=== PATIENT | female | born 1955 | race Two or more races ===

== ENCOUNTER → 2016-10-02 | Outpatient (CLI) | payer MEDICARE, OTHER ==
--- NOTE | 2016-10-02 10:26 | XR ---
EXAMINATION TYPE: XR abdomen 1V DATE OF EXAM: 10/02/2016 10:19 AM COMPARISON: NONE INDICATION: Renal stones right side TECHNIQUE: Single view abdomen supine view FINDINGS: There is abundant colonic bowel gas present. Psoas margins are normal. No organomegaly is present. Multiple right-sided renal stones are present. A larger stone in the midportion measures 0.9 x 1.4 cm . A grouping of multiple clustered calcifications is within the inferior pole measuring 1.0 x 2.1 cm. Electronic device overlies the left pelvis. Mild fecal retention is present. IMPRESSION: 1. Multiple right-sided renal stones.
== END | disposition home or self-care (01) ==
LOC: RADXRMAIN 09:51
PROVIDERS: ATTEND Urology
DX: N20.0 Calculus of kidney (principal)
CPT/HCPCS: 74000

== ENCOUNTER → 2016-12-03 | Outpatient (CLI) | payer MEDICARE, OTHER ==
[2016-12-03 10:33] LABS: EKG EKG PERFORMED
[2016-12-03 11:02] LABS: Basophils # (A) 0.1 k/uL (0-0.2); Basophils % (A) 1 %; CH 29.4; Eosinophils # (A) 0.1 k/uL (0-0.7); Eosinophils % (A) 1 %; HCT 40.8 % (34.0-46.0); HGB 13.7 gm/dL (11.4-16.0); Luc # (Auto) 0.18; Luc % (Auto) 2; Lymphocytes # (A) 2.1 k/uL (1.0-4.8); Lymphocytes % (A) 28 %; MCH 30.1 pg (25.0-35.0); MCHC 33.7 g/dL (31.0-37.0); MCV 89.4 fL (80.0-100.0); Mean Platelet Volume 7.2; Monocytes # (A) 0.4 k/uL (0-1.0); Monocytes % (A) 5 %; Neutrophils # (A) 4.8 k/uL (1.3-7.7); Neutrophils % (A) 63 %; RBC 4.56 m/uL (3.80-5.40); RDW 13.1 % (11.5-15.5); WBC 7.7 k/uL (3.8-10.6); WBC (Perox) 8.11
[2016-12-03 11:29] LABS: Appearance,Urine Clear (Clear); Bilirubin,Urine Negative (Negative); Glucose,Urine (UA) Negative (Negative); Ketones,Urine Negative (Negative); Leukocyte Esterase,Urine Moderate (Negative); Nitrite,Urine Negative (Negative); Particle Count 12336; Protein,Urine Negative (Negative); RBC,Urine <1 /hpf (0-5); Specific Gravity,Urine 1.001 (1.001-1.035); Squamous Epithelial Cell,Urine <1 /hpf (0-4); UA Billing (MACRO vs. MICRO) MICRO; Urobilinogen,Urine <2.0 mg/dL (<2.0); WBC,Urine 4 /hpf (0-5)
[2016-12-03 11:45] LABS: ALT 33 U/L (9-52); AST 23 U/L (14-36); Alkaline Phosphatase 85 U/L (38-126); Anion Gap 10 mmol/L; Blood Urea Nitrogen 14 mg/dL (7-17); Calcium 9.2 mg/dL (8.4-10.2); Carbon Dioxide 31 mmol/L (22-30); Chloride 102 mmol/L (98-107); Glucose 77 mg/dL (74-99); Non-African American GFR(MDRD) >60 (>60 ml/min/1.73 sqM); Potassium 4.2 mmol/L (3.5-5.1); Sodium 143 mmol/L (137-145); Total Bilirubin 0.8 mg/dL (0.2-1.3); Total Protein 6.6 g/dL (6.3-8.2)
== END | disposition home or self-care (01) ==
LOC: LABPAT 09:47
PROVIDERS: ATTEND Urology
DX: Z01.810 Encounter for preprocedural cardiovascular examination (principal); I10 Essential (primary) hypertension; E03.9 Hypothyroidism, unspecified; N20.0 Calculus of kidney; Z01.812 Encounter for preprocedural laboratory examination
CPT/HCPCS: 36415; 80053; 81001; 85025; 86850; 86900; 86901; 87077; 87086; 87186; 93005

== ENCOUNTER → 2016-12-22 | Outpatient (CLI) | payer MEDICARE, OTHER | END | disposition home or self-care (01) | LOC: LABWHC1 14:42 | PROVIDERS: ATTEND Urology | DX: I10 Essential (primary) hypertension (principal); N20.0 Calculus of kidney | CPT/HCPCS: 86850; 86900; 86901 ==

== ENCOUNTER 2016-12-24 07:11 | Day surgery (SDC) | payer MEDICARE, OTHER ==
[2016-12-18 14:50] VITALS: BMI 28.4
[~2016-12-24 07:11] MED LIST: DEXAMETHASONE SOD PHOSPHATE 10 MG/ML 1 ML VIAL IV ONE; LIDOCAINE 1% 20 ML VIAL (10MG/ML) FOR IV START INTRADERMA PRN; ONDANSETRON 4 MG/2 ML VIAL IVP ONE; SCOPOLAMINE 1.5MG/72HR PATCH TRANSDERM ONE; ceFAZolin 1,000 MG in DEXTROSE/WATER 1 50ML.BAG IV ONE
[2016-12-24] MEDS: LACTATED RINGERS 1,000 ML IV SCH (07:51)
--- NOTE | 2016-12-24 08:19 | XR ---
EXAMINATION TYPE: XR KUB DATE OF EXAM: 12/24/2016 CLINICAL DATA: 61-year-old female with kidney stones, prelithotripsy, [facility] COMPARISON: 10/02/2016 FINDINGS: Generator device projecting at the left iliac crest with stimulator array along the left sacroiliac. Right-sided nephrolithiasis redemonstrated with the 2 largest clusters measuring 1.6 cm and 2.5 cm. A dditional smaller calcifications are suggested on the right. Cholecystectomy clips. Nonobstructive bowel gas pattern. Continued elevation of the right hemidiaphragm. Moderate degenerative changes at the right hip and mild on the left. IMPRESSION: Redemonstrated right-sided nephrolithiasis with the 2 largest clusters measuring 1.6 and 2.5 cm.
[2016-12-24] MEDS ORDERED: ROCURONIUM BROMIDE 10 MG/ML 10 ML VIAL IV ONE (08:27)
[2016-12-24] MEDS ORDERED: MIDAZOLAM 2 MG/2 ML VIAL ONE (08:27)
[2016-12-24] MEDS ORDERED: ePHEDrine SULFATE/0.9% NACL/PF 50 MG/5 ML SYRINGE IV ONE (08:27)
[2016-12-24] MEDS ORDERED: LIDOCAINE 1% INJ 10MG/ML (20 ML MDV) ONE (08:27)
[2016-12-24] MEDS ORDERED: NEOSTIGMINE 1 MG/ML 10 ML VIAL ONE (08:27)
[2016-12-24] MEDS ORDERED: SUCCINYLCHOLINE CHLORIDE 100 MG/5 ML SYR IV ONE (08:27)
[2016-12-24] MEDS ORDERED: PHENYLEPHRINE-0.9% NACL SYG 1 MG/10 ML SYRINGE ONE (08:27)
[2016-12-24] MEDS ORDERED: fentaNYL (PF) 50 MCG/ML 2 ML AMP ONE (08:27)
[2016-12-24] MEDS ORDERED: GLYCOPYRROLATE 0.2 MG/ML 2 ML VIAL ONE (08:27)
[2016-12-24] MEDS ORDERED: PROPOFOL 10 MG/ML 20 ML VIAL IV ONE (08:27)
[2016-12-24] MEDS ORDERED: IOHEXOL 350 MG/ML 50ML BOTTLE INJ ONE (08:43)
[2016-12-24] MEDS ORDERED: LACTATED RINGERS 1,000 ML IV ONE (09:52)
[2016-12-24] MEDS ORDERED: MAG HYDROX/AL HYDROX/SIMETH 30 ML CUP PO PRN (10:55)
[2016-12-24] MEDS ORDERED: ONDANSETRON 4 MG/2 ML VIAL IVP PRN (10:57)
[2016-12-24] MEDS ORDERED: MORPHINE SULFATE 2 MG/ML SYRINGE IVP PRN (10:57)
--- NOTE | 2016-12-24 11:02 | P.OP ---
Date of Procedure: 12/24/16 Preoperative Diagnosis: Right renal calculi Postoperative Diagnosis: Right renal calculi Procedure(s) Performed: Cystoscopy, placement of nephrostomy tube right, percutaneous nephrostolithotomy right, Implants: Anesthesia: GETA Surgeon: Trip Child Estimated Blood Loss (ml): 25 Pathology: other (Stone) Condition: stable Disposition: PACU Indications for Procedure: The patient is a 61-year-old female with recurrent hematuria, infection and right renal stone she comes for percutaneous nephrostolithotomy Operative Findings: Description of Procedure: The patient is brought to the operating suite and given a successful general endotracheal anesthesia on the transport [place]. She's placed in a frog position with sterile prep and drape. Limited cystoscopy identifies normal urethra. The right ureteral orifice is identified and intubated with a 5- Austrian occluding balloon catheter. The cystoscope was removed and a Giraldo catheters placed The patient placed in prone position care to airways and extremities. Dr. Villa enters the procedure after sterile prep and drape to perform percutaneous access to a right lower pole calyx. Her collecting system was very floppy as is her ureter. Her adequate access we dilate the tract to 30- Austrian and introduced a 30-Austrian working sheath into the collecting system. The calyces are blunted and dilated. I looked throughout the complete collecting system and remove a voluminous amount of very tiny pinhead size stones. There were half dozen 2-3 mm stones. A collection of stones in the upper pole calyx that became evident that there were parenchymal. Intraoperative contrast injection and felt that the stones were behind the renal papillae. Dr. Maguire reviewed the computed tomography scan and concurred with that. The procedure after looking throughout the system with the flexible scope a 10-Austrian J nephrostomy tube was placed in her collecting system. Its position confirmed fluoroscopically with contrast injection. It was secured to the skin with 2 2-0 silk. The wound was dressed the patient's awake and returned recovery room good condition. The ureteral catheters removed. Blood loss was approximately 25 mL.
[2016-12-24] MEDS: HYDROmorphone 1 MG/ML 1 ML SYRINGE IVP PRN ×3 (11:33→12:27)
--- NOTE | 2016-12-24 11:58 | FL ---
EXAMINATION TYPE: FL Perc Nephrostomy New Access DATE OF EXAM: 12/24/2016 COMPARISON: NONE HISTORY: Hydronephrosis, ureteral obstruction with staghorn calculus. PROCEDURE: Maximal barrier technique was utilized. The skin overlying the right kidney was localized using fluo roscopy and the overlying skin prepped and draped. Lidocaine used for local anesthesia. Skin pio w as made with a scalpel. Access was gained under fluoroscopy, following placement of a ureteral occlu doyle balloon by the referring clinician and instillation of air in the renal collecting system with a 21-gauge needle to the kidney. A suitable posterior calyx was chosen. A 0.018 inch wire was [employer]. The access site was dilated and subsequently a sheath was advanced into the renal pelvis follow ing dilation with balloon along the tract. The patient underwent nephrolithotomy by the referring tonyi lashonda. The patient remained in stable condition without complication. The patient was discharged to observation. 29 minutes 36 seconds fluoroscopy time, 2 intraoperative C-arm images document the pr ocedure IMPRESSION: STATUS POST NEPHROSTOMY PLACEMENT FOR NEPHROLITHOTOMY WITH FLUOROSCOPIC GUIDANCE. THIS PROCEDURE PER FORMED BY THE UNDERSIGNED.
[2016-12-24] MEDS: DEXTROSE 5%-0.45% NACL 1,000 ML IV SCH (15:32)
[2016-12-24] MEDS: BENZTROPINE MESYLATE 1 MG TAB PO SCH ×2 (15:33→20:27)
[2016-12-24] MEDS: HALOPERIDOL 5 MG TAB PO SCH ×2 (15:34→20:28)
[2016-12-24] MEDS: ACETAMINOPHEN TAB 325 MG TAB PO PRN ×2 (15:52→20:32)
[2016-12-24] MEDS: MEMANTINE 10 MG TAB PO SCH (20:27)
[2016-12-25] MEDS: ACETAMINOPHEN TAB 325 MG TAB PO PRN (05:31)
[2016-12-25 07:52] VITALS: BP 116/71; PULSE 73; RESP 12; TEMP 98.3
[2016-12-25] MEDS: LACTATED RINGERS 1,000 ML IV SCH (07:52)
[2016-12-25] MEDS: BENZTROPINE MESYLATE 1 MG TAB PO SCH (08:44)
[2016-12-25] MEDS: MEMANTINE 10 MG TAB PO SCH (08:44)
[2016-12-25] MEDS: HALOPERIDOL 5 MG TAB PO SCH (08:44)
[2016-12-25] MEDS: DEXTROSE 5%-0.45% NACL 1,000 ML IV SCH ×2 (08:46→10:26)
[2016-12-25] MEDS ORDERED: TAMSULOSIN 0.4 MG CAP.ER.24H PO SCH (09:00)
[2016-12-25] MEDS ORDERED: BISACODYL 5 MG TABLET.DR PO SCH (09:00)
[2016-12-25] MEDS ORDERED: ESCITALOPRAM 10 MG TAB PO SCH (09:00)
--- NOTE | 2016-12-25 13:20 | P.DS ---
Providers Expected date of discharge: 12/25/16 Attending physician: Trip Child Primary care physician: [facility] Course: On the day of admission, the patient underwent an uncomplicated right percutaneous nephrolithotomy. A collection of upper pole calcifications were determined to be intraparenchymal. Multiple small stones were removed from the collecting system. The postoperative course was unremarkable. On the first postoperative day, the patient was comfortable. She was tolerating diet, and denied nausea and vomiting. The abdomen was soft and nontender. The Giraldo catheter was draining clear urine. Procedures: Right percutaneous nephrolithotomy on 12/24/2016. Patient Condition at Discharge: Good Plan - Discharge Summary New Discharge Prescriptions: New Hydrocodone/Acetaminophen [Gilmer 5-325] 1 - 2 each PO Q4HR PRN #20 tab PRN Reason: Pain No Action Diclofenac Sodium Gel [Voltaren Gel] 2 gm TOPICAL QID Bisacodyl [Dulcolax] 100 mg PO DAILY Memantine [Namenda] 10 mg PO BID Haloperidol [Haldol] 5 mg PO TID Escitalopram [Lexapro] 10 mg PO DAILY Benztropine Mesylate [Cogentin] 1 mg PO TID Tamsulosin HCl [Flomax] 0.4 mg PO DAILY QUEtiapine FUMARATE [Seroquel Xr] 300 mg PO 1700 Melatonin 3 mg PO HS Cholecalciferol (Vitamin D3) [Vitamin D3] 2,000 unit PO DAILY Calcium Carbonate 648 mg PO DAILY Discharge Medication List Benztropine Mesylate [Cogentin] 1 mg PO TID 12/18/16 [History] Bisacodyl [Dulcolax] 100 mg PO DAILY 12/18/16 [History] Calcium Carbonate 648 mg PO DAILY 12/18/16 [History] Cholecalciferol (Vitamin D3) [Vitamin D3] 2,000 unit PO DAILY 12/18/16 [History] Diclofenac Sodium Gel [Voltaren Gel] 2 gm TOPICAL QID 12/18/16 [History] Escitalopram [Lexapro] 10 mg PO DAILY 12/18/16 [History] Haloperidol [Haldol] 5 mg PO TID 12/18/16 [History] Melatonin 3 mg PO HS 12/18/16 [History] Memantine [Namenda] 10 mg PO BID 12/18/16 [History] QUEtiapine FUMARATE [Seroquel Xr] 300 mg PO 1700 12/18/16 [History] Tamsulosin HCl [Flomax] 0.4 mg PO DAILY 12/18/16 [History] Hydrocodone/Acetaminophen [Gilmer 5-325] 1 - 2 each PO Q4HR PRN #20 tab 12/25/16 [Rx] Follow up Appointment(s)/Referral(s): Trip Child MD [STAFF PHYSICIAN] - 1 Week Activity/Diet/Wound Care/Special Instructions: Discharge home with nephrostomy tube. Diet as tolerated. No strenuous activity. Drink plenty of fluids. Discharge Disposition: HOME SELF-CARE
== END 2016-12-25 15:18 | disposition home or self-care (01) ==
LOC: OR 07:11 → EDSTATUS 08:30 → 3SUR 10:59 → OR 12-25 15:18
PROVIDERS: ATTEND Urology
DX: N13.2 Hydronephrosis with renal and ureteral calculous obstruction (principal); I25.10 Atherosclerotic heart disease of native coronary artery without angina pectoris; Z95.5 Presence of coronary angioplasty implant and graft; E89.0 Postprocedural hypothyroidism; I10 Essential (primary) hypertension; Z85.118 Personal history of other malignant neoplasm of bronchus and lung; Z90.2 Acquired absence of lung [part of]; Z86.711 Personal history of pulmonary embolism; F03.90 Unspecified dementia, unspecified severity, without behavioral disturbance, psychotic disturbance, mood disturbance, and anxiety; Z79.01 Long term (current) use of anticoagulants; Z79.899 Other long term (current) drug therapy; Z88.8 Allergy status to other drugs, medicaments and biological substances
CPT/HCPCS: 50081; 82365; 74000; 50432; C1769 ×6; C2628; C1729 ×4; C1894; J2250; J1100; J2710; J2405; J2001; J3010; J1170; J0690; J2370; J0330; J2704; Q9967; 86850; 86900; 86901